=== PATIENT | female | born 1975 ===

== ENCOUNTER 2020-04-07 15:41 | Emergency (ER) | payer OTHER ==
[~2020-04-07] VITALS: Ht 165.1 cm; Wt 95.3 kg
[2020-04-07] MEDS ORDERED: [UNRECOGNIZED DRUG - OTHER] (16:36)
== END 2020-04-07 20:41 | disposition home or self-care (01) ==
LOC: ER 15:41
DX: U07.1 COVID-19 (principal); R05 Cough; R06.02 Shortness of breath